=== PATIENT | male | born 1990 | race American Indian/Alaskan Native ===

== ENCOUNTER 2019-07-04 22:29 | Emergency (ER) | payer SELFPAY ==
--- NOTE | 2019-07-04 23:01 | Emergency Department Report ---
History of Present Illness - General Chief Complaint: Overdose Stated Complaint: POSS OVERDOSE/NARC Time Seen by Provider: 07/04/19 22:47 Source: EMS Mode of arrival: Stretcher Limitations: No Limitations - History of Present Illness Initial Comments: 29-year-old male presents to ED for accidental drug overdose. Patient reports he was in a hotel room drinking with friends. Patient became unresponsive and EMS was called. Upon their arrival patient had shallow breathing. A couple of rescue breaths were given and Narcan was administered. Following Narcan administration patient regained consciousness. He denies doing any drugs, friends reported to EMS that patient also took a white powdery substance. Patient denies drug use tonight, but reports he has done cocaine in the past. He denies any heroin, amphetamine, pain pill use. Complaint: accidental overdose -: This evening How Overdose Was Discovered: family/friend present Context: Accidental Overdose: uncertain what happened Treatments Prior to Arrival: narcan - Related Data Previous Rx's Medication Instructions Recorded Last Taken Type Naproxen [Naprosyn] 500 mg PO BID #20 tablet 11/14/15 Unknown Rx Allergies Allergy/AdvReac Type Severity Reaction Status Date / Time No Known Allergies Allergy Unverified 11/14/15 09:30 ED Review of Systems ROS: Stated complaint: POSS OVERDOSE/NARC Other details as noted in HPI Comment: All other systems reviewed and negative Respiratory: denies: shortness of breath Cardiovascular: denies: chest pain ED Past Medical Hx - Social History Smoking Status: Current Every Day Smoker Substance Use Type: Alcohol, Marijuana - Medications Home Medications: Home Medications Medication Instructions Recorded Confirmed Last Taken Type Naproxen [Naprosyn] 500 mg PO BID #20 tablet 11/14/15 Unknown Rx ED Physical Exam - General Limitations: No Limitations General appearance: alert, in no apparent distress - Head Head exam: Present: atraumatic, normocephalic - Eye Eye exam: Present: normal appearance, PERRL, EOMI - ENT ENT exam: Present: mucous membranes moist - Neck Neck exam: Present: normal inspection - Respiratory Respiratory exam: Present: normal lung sounds bilaterally. Absent: respiratory distress - Cardiovascular Cardiovascular Exam: Present: normal rhythm, tachycardia - GI/Abdominal GI/Abdominal exam: Present: soft. Absent: distended, tenderness - Extremities Exam Extremities exam: Present: normal inspection - Neurological Exam Neurological exam: Present: alert, oriented X3 - Psychiatric Psychiatric exam: Present: normal affect, normal mood - Skin Skin exam: Present: warm, dry, intact, normal color ED Course Vital Signs 07/04/19 07/04/19 07/04/19 22:34 22:41 22:46 Temperature 97.3 F L Pulse Rate 103 H 104 H 98 H Respiratory 14 13 12 Rate Blood Pressure 178/113 178/113 Blood Pressure [Left] O2 Sat by Pulse 100 100 96 Oximetry 07/04/19 07/04/19 07/04/19 23:00 23:16 23:30 Temperature Pulse Rate 98 H 98 H 108 H Respiratory 12 11 L 16 Rate Blood Pressure 166/115 178/113 178/113 Blood Pressure [Left] O2 Sat by Pulse 95 93 98 Oximetry 07/04/19 07/05/19 07/05/19 23:46 00:00 01:06 Temperature 98.0 F Pulse Rate 96 H 92 H 84 Respiratory 17 19 Rate Blood Pressure 166/115 166/115 Blood Pressure 133/72 [Left] O2 Sat by Pulse 89 99 Oximetry ED Medical Decision Making - Lab Data Result diagrams: 07/04/19 23:06 07/04/19 23:06 - EKG Data -: EKG Interpreted by Me EKG shows normal: sinus rhythm, axis, intervals, QRS complexes, ST-T waves Rate: normal - EKG Data Interpretation: no acute changes - Radiology Data Radiology results: report reviewed, image reviewed - Medical Decision Making - 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 - Outpatient follow-up advised - Differential Diagnosis Drug use, arrhythmia, intracranial abnormality Critical care attestation.: If time is entered above; I have spent that time in minutes in the direct care of this critically ill patient, excluding procedure time. ED Disposition Clinical Impression: Syncope, Cocaine abuse, Hypertension Disposition: DC-01 TO HOME OR SELFCARE Is pt being admited?: No Condition: Stable Instructions: Syncope (ED), Cocaine Abuse (ED), Hypertension (ED) Referrals: PRIMARY CARE, [Primary Care Provider] - 3-5 Days [facility] [Provider Group] - 3-5 Days [facility] [Outside] - 3-5 Days Time of Disposition: 00:55
--- NOTE | 2019-07-04 23:17 | XRay Report ---
CHEST 1 VIEW INDICATION / CLINICAL INFORMATION: syncope. COMPARISON: 03/01/2009 FINDINGS: SUPPORT DEVICES: None. HEART / MEDIASTINUM: No significant abnormality. LUNGS / PLEURA: No significant pulmonary or pleural abnormality. No pneumothorax. ADDITIONAL FINDINGS: No significant additional findings. IMPRESSION: 1. No acute findings. No interval change. Signer Name: Amaya Osuna MD Signed: 07/04/2019 11:13 PM Workstation Name: [id number]
[2019-07-04 23:27] LABS: Basophils # (Auto) 0.1 K/mm3 (0.0-0.1); Basophils % (Auto) 0.4 % (0.0-1.8); Eosinophils # (Auto) 0.2 K/mm3 (0.0-0.4); Eosinophils % (Auto) 1.4 % (0.0-4.3); Hematocrit 44.7 % (35.5-45.6); Hemoglobin 14.1 gm/dl (11.8-15.2); Lymphocytes # (Auto) 1.6 K/mm3 (1.2-5.4); Lymphocytes % (Auto) 10.6 % (13.4-35.0); Mean Corpuscular HGB Conc 32 % (32-34); Mean Corpuscular Volume 72 fl (84-94); Monocytes # (Auto) 1.2 K/mm3 (0.0-0.8); Monocytes % (Auto) 8.3 % (0.0-7.3); Platelet Count 314 K/mm3 (140-440); Red Blood Count 6.18 M/mm3 (3.65-5.03); Red Cell Distribution Width 19.1 % (13.2-15.2)
[2019-07-05 00:25] LABS: BUN/Creatinine Ratio 7; Blood Urea Nitrogen 8 mg/dL (9-20); Calcium 9.3 mg/dL (8.4-10.2); Hemolysis Index 18
[2019-07-05 00:32] LABS: Amphetamine Screen,Urine PRESUMPTIVE NEGATIVE; Benzodiazepines Screen,Urine PRESUMPTIVE NEGATIVE; Methadone Screen,Urine PRESUMPTIVE NEGATIVE; Opiate Screen,Urine PRESUMPTIVE NEGATIVE
[2019-07-05 00:51] LABS: Cannabinoid Screen,Urine PRESUMPTIVE POSITIVE; Cocaine Screen,Urine PRESUMPTIVE POSITIVE
[2019-07-05 01:08] VITALS: BP 133/72
== END 2019-07-05 01:07 | disposition home or self-care (01) ==
LOC: ED 22:29
DX: T40.5X1A Poisoning by cocaine, accidental (unintentional), initial encounter (principal); R55 Syncope and collapse; I10 Essential (primary) hypertension; F17.200 Nicotine dependence, unspecified, uncomplicated; F12.10 Cannabis abuse, uncomplicated; Y92.89 Other specified places as the place of occurrence of the external cause
CPT/HCPCS: 36415; 71045; 80048; 80307; 80320; 84484; 85025; 93005; 93010; 99284; G0480